=== PATIENT | male | born 1980 | race Caucasian/White ===

== ENCOUNTER 2025-10-25 03:54 | Emergency (ER) | payer OTHER ==
[2025-10-25] MEDS ORDERED: Ondansetron PF 4 MG/2 ML Vial ONE (04:26)
[2025-10-25 04:29] LABS: ALT (SGPT) 19 U/L (Less than 45); AST (SGOT) 22 U/L (11-34); Albumin 4.0 g/dL (3.1-4.5); Alkaline Phosphatase 70 U/L (40-110); Anion Gap 13 mmol/L (10-20); BUN (Urea Nitrogen) 19 mg/dL (8.9-20.6); Bilirubin, Total 0.4 mg/dL (0.3-1.2); Calc. Creatinine Clearance 0 mL/min (70-130); Calcium 8.6 mg/dL (7.8-10.44); Carbon Dioxide 21 mmol/L (22-29); Chloride 107 mmol/L (98-107); Globulin 2.8 g/dL (2.4-3.5); Glucose 105 mg/dL (70-105); Hematocrit 42.9 % (42.0-52.0); Hemoglobin 15.6 g/dL (14.0-18.0); Lipase 20 U/L (8-78); Mean Corpuscular Hemoglobin 31.5 pg (27.0-31.0); Mean Corpuscular Volume 86.9 fl (78.0-98.0); Platelet Count 260 10x3/uL (130-400); Potassium 4.0 mmol/L (3.5-5.1); Red Blood Cell (RBC) Count 4.94 mill/uL (4.70-6.10); Sodium 137 mmol/L (136-145); White Blood Cell (WBC) Count 12.7 10x3/uL (4.8-10.8)
[2025-10-25 04:32] LABS: Platelet Adequacy Comment Appears Adequate
[2025-10-25 08:54] LABS: Glucose, Urine (Dipstick) Negative (Negative); Leukocyte Negative (Negative); Protein, Urine (Dipstick) Negative (Neg-Trace); Specific Gravity, Urine 1.015 (1.005-1.030)
[2025-10-25] MEDS ORDERED: cefTRIAXone (ROCEPHIN) 2 GM VIAL ONE (10:06)
[2025-10-26 00:45] LABS: Chlam.trachomatis by PCR,Urine Not Detected (NotDetected); GC N.gonorrhoeae PCR,UrineVOID Not Detected (NotDetected)
== END 2025-10-25 10:38 | disposition home or self-care (01) ==
LOC: NAV ERS 03:54
DX: R10.32 Left lower quadrant pain (principal); R03.0 Elevated blood-pressure reading, without diagnosis of hypertension; N45.1 Epididymitis; D72.829 Elevated white blood cell count, unspecified; K40.90 Unilateral inguinal hernia, without obstruction or gangrene, not specified as recurrent; F17.210 Nicotine dependence, cigarettes, uncomplicated
CPT/HCPCS: 74177; 80053; 81001; 83690; 85025; 87086; 87491; 87591; 96365; 96375; J0696; J2270; J2405; J7030